=== PATIENT | female | born 1990 | race Hispanic/Latino ===

== ENCOUNTER 2017-01-09 20:37 | Inpatient (IN) | payer BC, OTHER ==
[2017-01-09 21:15] VITALS: BMI 34.4
[2017-01-09] MEDS ORDERED: ceFAZolin 2 GM in Sodium Chloride 0.9% 100 ML IVPB ONE (21:20)
[2017-01-09] MEDS ORDERED: Oxytocin 30 units/LR 500ML 30 U/500 ML BAG IV SCH (21:30)
[2017-01-09] MEDS: Lactated Ringer's 1,000 ML IV SCH ×2 (21:55→23:15)
[2017-01-09 22:34] LABS: BASO % 0.2 % (0.0-2.0); EOS % 0.6 % (0.0-4.0); HEMATOCRIT 30.3 % (34.0-47.0); LYMPH # 1.5 K/uL (1.0-4.3); LYMPH % 21.6 % (20.0-40.0); MEAN CELL VOLUME 89.9 fl (81.0-99.0); MEAN CORPUSCULAR HEMOGLOBIN 30.3 pg (27.0-31.0); MEAN CORPUSCULAR HGB CONC 33.7 g/dL (33.0-37.0); MEAN PLATELET VOLUME 10.6 fl (7.2-11.7); MONO # 0.3 K/uL (0.0-0.8); MONO % 4.9 % (0.0-10.0); NEUT # 4.9 K/uL (1.8-7.0); NEUT % 72.7 % (50.0-75.0); RED CELL DISTRIBUTION WIDTH 14.3 % (11.5-14.5); WHITE BLOOD COUNT 6.8 K/uL (4.8-10.8)
--- NOTE | 2017-01-10 00:43 | OBADHP ---
Datetime: 01/09/2017 23:35 FHR - Baseline A Provider: 130 Vital Signs Provider: Reviewed; Within Normal Limits NICHD Variability Prov Fetus A: Moderate 6-25bpm NICHD Accel Fetus A IP Provider: 15X15 FHR Category Provider Fetus A: Category I NICHD Decel Fetus A IP Provider: None Datetime: 01/09/2017 22:15 Pelvic Type - PN: Adequate Extremities - PN: Normal Abdomen - PN: Normal Back - PN: Normal Breast - PN: Not Done Lungs - PN: Normal Heart - PN: Normal Thyroid - PN: Not Done Neurologic - PN: Normal HEENT - PN: Normal General - PN: Normal Genitourinary Exam: Normal DTRs - PN: Not Done Datetime: 01/09/2017 22:00 Admit Comment, IP Provider: CHIEF COMPLAINT: LOF _ CTX HPI: 26 yo at 38.2 wks GA with EDC by lmp ...+ROM/CTX/FM - VB She shares that ROM occured at 2 pm with occasional contractions. Scheduled section planned to oc cur tomorrow. Risk factors include hypertension. Shares her last meal was about an hour ago including burger and fries. last U/S: 01/02/2017 last visit01/07/2017 GBS? PAST OB HX: 2009 C/S failure to progess @ 41 week, F PAST [employer] HX: STD: none, PAP 12/2016 PMHX: HTN, Asthma PAST SX HX: c/s in 2009 SOCIAL HX: denies: SMOKING ,ALCOHOL ,DRUGS MEDICATION: PNV ALLERGIES: NKDA VITALS: 111/93 87 PE: General: pleasant, in no acute distress HEENT: normocephalic, PERRLA; AAOx3 Heart: no murmurs, regular rate and rhythm, S1, S2 normal. Lungs: clear to auscultation bilaterally, no wheezing Abodmen: gravid CVA: negative SSE/PELVIC EXN: ROM Bed side u/s: n/a MONITOR (normal) Variablity: moderate: ACC: 15x15 DECC: none FHR: 137 ASSESSMENT: 26 yo at 38.2 wks with h/o c/s in 2009 due to failure to progess admitted for [facility]. She was planned to be sectioned tomorrrow, however, ROM was at 2 pm Risk factor fo r HTN. PLAN: IV LR, u/a,cmp,cbc; Admit to L_D for planned section. Addendum: I saw on exam and patient presentation. On sterile speculum exam, amniotic fluid seen with Valsalv a. Cervix long, closed, posterior. Patient without any contractions. heart tracing reassuring. Patient reports having full meal immediately prior to arrival at OB ED. Patient reports having a c heeseburger and persian fries. I discussed with patient that more time with needed for nothing by mout h status. Plan to admit patient to L_D. Plan to complete repeat section after nothing by akash th status. Both maternal well-being and well-being reassuring time. I discussed plan with patie nt and all patient questions answered. IP Chief Complaint: Uterine contractions; Suspected ruptured membranes IP Adm Impression: Term, intrauterine IP Admit Plan: Admit to unit
[2017-01-10] MEDS: Lactated Ringer's 1,000 ML IV SCH ×3 (01:15→22:04)
[2017-01-10] MEDS ORDERED: Nalbuphine 20 mg/ml Inj (1 ml) IVP PRN (02:53)
[2017-01-10] MEDS ORDERED: Morphine 5 mg/10 ml preservative-free Inj(Duramorph) ONE (12:22)
[2017-01-10] MEDS ORDERED: ePHEDrine 50 mg/ml Inj ONE (12:38)
[2017-01-10] MEDS ORDERED: Naloxone 0.4 mg/ml Inj (Adult) IVP PRN (13:41)
[2017-01-10] MEDS ORDERED: DiphenhydrAMINE 50 mg/ml Inj IVP PRN ×2 (13:41→16:56)
--- NOTE | 2017-01-10 13:59 | OP ---
PROCEDURE DATE: 01/10/2017 PREOPERATIVE DIAGNOSES: Intrauterine of 38-weeks, history of previous section, history of chronic hypertension. POSTOPERATIVE DIAGNOSES: Intrauterine of 38-weeks, history of previous section, history of chronic hypertension. PROCEDURE: Repeat low flap transverse section via Pfannenstiel skin incision. SURGEON: Dr. Michael Hathaway PLANT BIOLOGY PROFESSOR: Dr. Stevan Alston. He was instrumental in the care of the patient, helped to clear the exposure, helpful in delivering the , obtaining hemostasis and closure of the patient and the procedure would not have been possible without his assistance. TYPE OF ANESTHESIA: Spinal. ANESTHESIA ADMINISTERED BY: Dr. Allan Marte. ESTIMATED BLOOD LOSS: 800 mL URINE OUTPUT: Hugo catheter put out approximately 300 mL of clear urine. OPERATIVE FINDINGS: Baby boy vertex presentation. Apgars 9 and 9, weighing 3435 g, 7 pounds 9 ounces. Normal uterus tubes and ovaries were identified. COMMENTS: The patient had history of chronic hypertension, maternal medicine consultation obtained, recommendations for delivery at 38 weeks was made. COMPLICATIONS: None. DESCRIPTION OF PROCEDURE: After informed consent was obtained, the patient was taken to the operating room where she was given spinal anesthesia. The patient was then prepped and draped in the normal sterile fashion with a leftward tilt. A Pfannenstiel skin incision was then made with a scalpel and carried down to the underlying layer of fascia. The fascia was nicked in the midline. The fascial incision was then extended laterally. The superior aspect of the fascial incision was then grasped with Fiorella clamps, elevated up and the rectus muscles were dissected off using both sharp and blunt dissection. Attention was then turned to the inferior aspect of the fascial incision with similar fashion, was grasped with Fiorella clamps, elevated up and the rectus muscles were dissected up using sharp and blunt dissection. The rectus muscles were then in the midline, the peritoneum identified and entered sharply with the Metzenbaum scissors. The peritoneal incisions were then extended superiorly and inferiorly with good visualization of the bladder. The bladder blade was inserted. The vesicouterine and peritoneum was identified, grasped with a smooth pickup and entered sharply with the Metzenbaum scissors. The bladder flap was then created digitally. A bladder blade was then reinserted and a low transverse uterine incision was made with the scalpel. The uterine incision was then extended laterally. The infant's head was then delivered atraumatically. The nose and mouth were suctioned with DeLee suction trap. The cord was clamped and cut. The infant was handed off to the waiting pediatricians. The placenta was then removed manually. The uterus was exteriorized and cleared of all clots and debris. The uterine incision was repaired with 0-Vicryl in a running locked fashion. Second layer of the same suture was used to obtain excellent hemostasis. The abdomen was then copiously irrigated. The irrigant was removed with the suction device. The uterus was returned to the abdomen. The gutters were then cleared off all clots and debris. Hemostasis was noted. The peritoneum was then closed with 2-0 Vicryl in a running fashion. The muscle was re-approximated with 0 Vicryl in an interrupted fashion. The fascia was closed with 0 Vicryl in a running fashion. The skin was closed with 4-0 on a Reagan needle. All sponge, lap, needle, and instrument counts were correct x2 and the patient was taken to the recovery room in awake and stable condition. Michael Hathaway MD
[2017-01-11] MEDS: Oxycodone/Acetaminophen 5/325 mg Tab PO PRN ×4 (06:12→21:35)
[2017-01-11 06:47] LABS: BASO % 0.1 % (0.0-2.0); EOS % 0.4 % (0.0-4.0); HEMATOCRIT 29.4 % (34.0-47.0); LYMPH # 1.2 K/uL (1.0-4.3); LYMPH % 18.2 % (20.0-40.0); MEAN CELL VOLUME 90.6 fl (81.0-99.0); MEAN CORPUSCULAR HEMOGLOBIN 30.2 pg (27.0-31.0); MEAN CORPUSCULAR HGB CONC 33.4 g/dL (33.0-37.0); MEAN PLATELET VOLUME 10.7 fl (7.2-11.7); MONO # 0.4 K/uL (0.0-0.8); MONO % 6.9 % (0.0-10.0); NEUT # 4.7 K/uL (1.8-7.0); NEUT % 74.4 % (50.0-75.0); RED CELL DISTRIBUTION WIDTH 14.3 % (11.5-14.5); WHITE BLOOD COUNT 6.4 K/uL (4.8-10.8)
--- NOTE | 2017-01-11 07:36 | OBPPN ---
Datetime: 01/11/2017 07:32 PP Pain Prov: Within normal limits PP Nausea Prov: Denies PP Flatus Prov: Yes PP Breasts Prov: Not Done PP Heart Prov: Normal PP Lungs Prov: Normal PP Abdomen/Uterus Prov: Normal PP Lochia Prov: Not Done PP Vulva/Perineum Prov: Not Done PP CVA Tenderness Prov: Normal PP Extremities Prov: Normal PP C/S Incision Prov: Normal PP Impression Prov: Normal progression PP Plan Prov: Continue present management PP Progress Note Prov: Patient well reports some nausea no vomiting pain well-controlled Vital signs stable afebrile Uterus firm below the umbilicus Incision clean dry and intact Extremities no Homans Postoperative day #1 Discontinue Hugo IV fluid Ambulate analgesia as needed advance diet as tolerated Vital Signs Provider PP: Reviewed
[2017-01-12] MEDS: Oxycodone/Acetaminophen 5/325 mg Tab PO PRN ×5 (02:14→23:29)
--- NOTE | 2017-01-12 10:01 | OBDS ---
DELIVERY PERSONNEL Delivery Doctor: Ayleen Hathaway MD Scale Tester: Delia Mosquera RN Anesthesiologist: Radha Thomas MD MATERNAL INFORMATION Delivery Anesthesia: Spinal Medications in Delivery: ancef Estimated Blood Loss (ml): 800 Placenta Cultured: No (Annotations: Data stored by N on behalf of user) Maternal Complications: None RN Comments: pt delivered viable male via repeat c section. was taken to warmer and ex amined by Dr Randle at . apgars were 9 and 9. pt remained in stable condition. VSS. infant taken to nursery per pt request Provider Comments: See operative note LABOR SUMMARY EDC: 01/23/2017 00:00 No. Babies in Womb: 1 Attempted: No LABOR INFORMATION Reason for Induction: Not Applicable Onset of Labor: 01/09/2017 01:00 Oxytocin: N/A Group B Beta Strep: Negative Steroids Given: None Reason Steroids Not Administered: Not Applicable MEMBRANES Membranes Rupture Method: Spontaneous Rupture of Membranes: 01/09/2017 14:00 Length of Rupture (hrs): 22.88 Amniotic Fluid Color: Clear Amniotic Fluid Amount: Small Amniotic Fluid Odor: Normal STAGES OF LABOR Stage 3 hrs: 0 Stage 3 min: 1 Total Time in Labor hrs: 35 Total Time in Labor min: 54 CSECTION DELIVERY Primary Indication: Repeat Elective CSection Urgency: Elective CSection Incidence: Repeat Labor: No Labor Elective: Elective CSection Incision: Lower Uterine Transverse BABY A INFORMATION Delivery Date/Time: 01/10/2017 12:53 Method of Delivery: Born in Route : No : N/A Forceps: N/A Vacuum Extraction: N/A Shoulder Dystocia : No SHOULDER DYSTOCIA BABY A Infant Delivery Date/Time: 01/10/2017 12:53 PRESENTATION/POSITION BABY A Presentation: Cephalic Cephalic Presentation: Vertex Breech Presentation: N/A PLACENTA INFORMATION BABY A Placenta Delivery Time : 01/10/2017 12:54 Placenta Method of Delivery: Manual Removal Placenta Status: Delivered SCORES BABY A Heart Rate 1 min: >100 bpm Resp Effort 1 min: Good Cry Reflex Irritability 1 min: Cough or Sneeze or Pulls Away Muscle Tone 1 min: Active Motion Color 1 min: Body [place], Extremities Blue Resuscitation Effort 1 min: N/A SCORE 1 MIN: 9 Heart Rate 5 min: >100 bpm Resp Effort 5 min: Good Cry Reflex Irritability 5 min: Cough or Sneeze or Pulls Away Muscle Tone 5 min: Active Motion Color 5 min: Body [place], Extremities Blue Resuscitation Effort 5 min: N/A SCORE 5 MIN: 9 INFANT INFORMATION BABY A Gestational Age at Delivery: 38.1 Gestational Status: Term Outcome : Liveborn Infant Condition : Stable Infant Sex: Male WEIGHT/LENGTH BABY A Birthweight (gms): 3435 Weight (lb): 7 Infant Weight (oz): 9 Length Inches: 20.00 Length cms: 50.8 CORD INFORMATION BABY A No. Cord Vessels: 3 Nuchal Cord : Around Neck x1, Loose Cord Blood Taken: Yes Suction: Mouth ASSESSMENT BABY A Complications: None Physical Findings at Delivery: Within Normal Limits Infant Respirations: Appears Normal Highway Maintenance Technician/ALS Called : No
--- NOTE | 2017-01-12 10:02 | OBHP ---
Datetime: 01/09/2017 23:35 FHR - Baseline A Provider: 130 Vital Signs Provider: Reviewed; Within Normal Limits NICHD Variability Prov Fetus A: Moderate 6-25bpm NICHD Accel Fetus A IP Provider: 15X15 FHR Category Provider Fetus A: Category I NICHD Decel Fetus A IP Provider: None Datetime: 01/09/2017 22:15 Pelvic Type - PN: Adequate Extremities - PN: Normal Abdomen - PN: Normal Back - PN: Normal Breast - PN: Not Done Lungs - PN: Normal Heart - PN: Normal Thyroid - PN: Not Done Neurologic - PN: Normal HEENT - PN: Normal General - PN: Normal Genitourinary Exam: Normal DTRs - PN: Not Done Datetime: 01/09/2017 22:00 IP Adm Impression: Term, intrauterine IP Admit Plan: Admit to unit Admit Comment, IP Provider: CHIEF COMPLAINT: LOF _ CTX HPI: 26 yo at 38.2 wks GA with EDC by lmp ...+ROM/CTX/FM - VB She shares that ROM occured at 2 pm with occasional contractions. Scheduled section planned to oc cur tomorrow. Risk factors include hypertension. Shares her last meal was about an hour ago including burger and fries. last U/S: 01/02/2017 last visit01/07/2017 GBS? PAST OB HX: 2009 C/S failure to progess @ 41 week, F PAST [employer] P[employer]ER HX: STD: none, PAP 12/2016 PMHX: HTN, Asthma PAST SX HX: c/s in 2009 SOCIAL HX: denies: SMOKING ,ALCOHOL ,DRUGS MEDICATION: PNV ALLERGIES: NKDA VITALS: 111/93 87 PE: General: pleasant, in no acute distress HEENT: normocephalic, PERRLA; AAOx3 Heart: no murmurs, regular rate and rhythm, S1, S2 normal. Lungs: clear to auscultation bilaterally, no wheezing Abodmen: gravid CVA: negative SSE/PELVIC EXN: ROM Bed side u/s: n/a MONITOR (normal) Variablity: moderate: ACC: 15x15 DECC: none FHR: 137 ASSESSMENT: 26 yo at 38.2 wks with h/o c/s in 2009 due [facility] She was planned to be sectioned tomorrrow, however, ROM was at 2 pm Risk factor fo r HTN. PLAN: IV LR, u/a,cmp,cbc; Admit to L_D for planned section. Addendum: I saw on exam and patient presentation. On sterile speculum exam, amniotic fluid seen with Valsalv a. Cervix long, closed, posterior. Patient without any contractions. heart tracing reassuring. Patient reports having full meal immediately prior to arrival at OB ED. Patient reports having a c heeseburger and swedish fries. I discussed with patient that more time with needed for nothing by mout h status. Plan to admit patient to L_D. Plan to complete repeat section after nothing by akash th status. Both maternal well-being and well-being reassuring time. I discussed plan with patie nt and all patient questions answered. IP Chief Complaint: Uterine contractions; Suspected ruptured membranes
--- NOTE | 2017-01-12 10:02 | OBPPN ---
Datetime: 01/12/2017 09:59 PP Pain Prov: Within normal limits PP Nausea Prov: Denies PP Flatus Prov: Yes PP Breasts Prov: Not Done PP Heart Prov: Normal PP Lungs Prov: Normal PP Abdomen/Uterus Prov: Normal PP Lochia Prov: Not Done PP Vulva/Perineum Prov: Not Done PP CVA Tenderness Prov: Normal PP Extremities Prov: Normal PP C/S Incision Prov: Normal PP Impression Prov: Normal progression PP Plan Prov: Continue present management PP Progress Note Prov: Patient doing well ambulating tolerating diet Vital signs stable afebrile Uterus firm below the umbilicus Incision clean dry and intact Extremities no Homans Postoperative day #2 Ambulating, analgesia as needed, regular diet, anticipate discharge in a.m. Vital Signs Provider PP: Reviewed
[2017-01-12] MEDS: Simethicone 80 mg Chewtab PO PRN (10:48)
[2017-01-13] MEDS: Oxycodone/Acetaminophen 5/325 mg Tab PO PRN (04:54)
[2017-01-13] MEDS: Simethicone 80 mg Chewtab PO PRN (08:27)
--- NOTE | 2017-01-13 09:44 | OBDCSUM ---
Datetime: 01/13/2017 09:42 Discharged to, Provider: Home Follow up at, Provider: OB Disch Instr Activity: Normal activity Disch Instr Diet: Regular Discharge Instructions, Provider: Routine instructions given Discharge Diagnosis, Provider: Term Delivered Discharge Time: 01/13/2017 09:42 Follow up in weeks, Provider: 1 wk, 6 wks Disch Referrals: None Contraception discussed, Prov: Yes
--- NOTE | 2017-01-13 09:44 | OBPPN ---
Datetime: 01/13/2017 09:41 PP Pain Prov: Within normal limits PP Nausea Prov: Denies PP Flatus Prov: Yes PP Breasts Prov: Normal PP Heart Prov: Normal PP Lungs Prov: Normal PP Abdomen/Uterus Prov: Normal PP Lochia Prov: Normal PP Vulva/Perineum Prov: Normal PP CVA Tenderness Prov: Normal PP Extremities Prov: Normal PP Comments Phys Exam Prov: fundus firm under umbilicus INcision clean/dry/intact PP Impression Prov: Normal progression PP Plan Prov: Continue present management PP Progress Note Prov: Patient denies CP, no SOB, no N/V, tolerating PO diet, ambulating/voiding wel l, mild lochia, abdominal pain tolerable with meds, +flatus A/P POD #3 1. Discharge patient home 2. Discharge instructions reviewed IP PP Procedures: None Vital Signs Provider PP: Reviewed; Within Normal Limits
[2017-01-13 16:42] VITALS: BP 145/80; PULSE 69; RESP 20; TEMP 98.4; O2SAT 98
== END 2017-01-13 12:20 | disposition home or self-care (01) | DRG 766 ==
LOC: H.EROB2 20:37 → H.L&D 21:16 → H.OB/GYN 01-10 16:11
PROVIDERS: ADMIT Obstetrics & Gynecology; ATTEND Obstetrics & Gynecology
PROC: 4A1HXCZ Monitoring of Products of Conception, Cardiac Rate, External Approach (ICD-10-PCS; 2017-01-09)
PROC: 10D00Z1 Extraction of Products of Conception, Low, Open Approach (ICD-10-PCS; principal; 2017-01-10)
DX: O34.211 Maternal care for low transverse scar from previous cesarean delivery (principal); I10 Essential (primary) hypertension; Z37.0 Single live birth; O99.52 Diseases of the respiratory system complicating childbirth; N85.8 Other specified noninflammatory disorders of uterus; O16.4 Unspecified maternal hypertension, complicating childbirth; J45.909 Unspecified asthma, uncomplicated; O69.81X0 Labor and delivery complicated by cord around neck, without compression, not applicable or unspecified; Z3A.38 38 weeks gestation of pregnancy